=== PATIENT | female | born 1980 | race Caucasian/White ===

== ENCOUNTER 2016-08-25 21:01 | Emergency (ER) | payer SELFPAY ==
[~2016-08-25 21:01] MED LIST: AMBIEN10 M1 PO; CYCLOBENZAPRINE10 M1 PO; MEDROL4 M2 PO; MELOXICAM7.5 M1 PO; MOBIC7.5 M2 PO; NEURONTIN100 M1 PO; PROVENTIL HFA6.7 G1 IH; TRAZODONE HCL150 M1 PO; ZITHROMAX250 M1 PO
[2016-08-25] MEDS ORDERED: KEFLEX500 M4 PO (21:40)
[2016-08-25] MEDS ORDERED: GENTAK5 M1 OP (21:40)
== END 2016-08-25 21:49 ==
LOC: EDMED 21:01
DX: H10.9 Unspecified conjunctivitis (principal); L03.211 Cellulitis of face; F17.200 Nicotine dependence, unspecified, uncomplicated